=== PATIENT | male | born 1970 | race Caucasian/White ===

== ENCOUNTER 2016-07-10 16:58 | Emergency (ER) | payer OTHER ==
[2016-07-10 17:04] VITALS: BP 129/78; PULSE 81; TEMP 97.9; BMI 21.2
--- NOTE | 2016-07-10 17:44 | PDOC ---
History of Present Illness - General Chief Complaint: Back Pain Stated Complaint: BACK ACHE Time Seen by Provider: 07/10/16 17:33 History Source: Patient Exam Limitations: No Limitations - History of Present Illness Initial Comments: CHIEF COMPLAINT: 45 y/o afebrile male with PMH recent right shoulder arthroscopy c/o low back pain since this morning. HISTORY OF PRESENT ILLNESS: The patient states he was bending down to take picture of his dog and when he went to stand up he felt a pulling in his lower back on both sides. He states during his recent shoulder physical therapy he's felt some "twinges" in his back so he's not surprised this happened. He has been icing it all day but is still very uncomfortable. He is taking Ibuprofen for pain with little relief. He denies fall, abd pain, midline back tenderness , saddle anesthesia, numbness/tingling of LEs, traveling of pain down LEs. Vital signs on arrival are within normal limits. REVIEW OF SYSTEMS: GENERAL/CONSTITUTIONAL: No fever/chills. No weakness. No weight change. GASTROINTESTINAL: No abd pain, nausea, vomiting, diarrhea. GENITOURINARY: No dysuria, frequency, or change in urination. BACK: +low back pain. MUSCULOSKELETAL: No joint or muscle swelling or pain. No neck or back pain. SKIN: No rash or easy bruising. NEUROLOGIC: No headache, vertigo, loss of consciousness, or loss of sensation. PHYSICAL EXAM: GENERAL: The patient is awake, alert, and fully oriented, in no acute distress. The patient is walking slowly and is in obvious discomfort. HEAD: Normal with no signs of trauma. ABDOMEN: Soft, non-distended, non-tender even to deep palpation, no hepatomegaly or splenomegaly, no masses. BACK: No midline lumbar spine TTP or step offs. TTP of b/l lower lumbar paravertebral muscles. Pain elicited with extension of lumbar spine. EXTREMITIES: Normal range of motion, no edema. NEUROLOGICAL: Normal speech, normal gait. CN II-XII grossly intact. No saddle anesthesia. Equal straight leg raise b/l. SKIN: Warm, dry, normal turgor, no rashes or lesions noted. Past History - Past Medical History Allergies/Adverse Reactions: Allergies Allergy/AdvReac Type Severity Reaction Status Date / Time Penicillins Allergy "I DON'T Verified 07/10/16 17:04 KNOW-TOLD A CHILD" BEE STINGS Allergy ANAPHYLACTIC Uncoded 07/10/16 17:04 SHOCK" Home Medications: Ambulatory Orders Ca Cmb No.1/Vit D3/B-6/FA/B12 [Vitamin D3 1,000 Unit Tablet] 1 each PO DAILY Fluticasone Prop 0.05% Nasal [Flonase -] 1 - 2 spray NS DAILY 01/22/14 Oxycodone HCl/Acetaminophen [Percocet 5-325 mg Tablet -] 1 tab PO Q4H PRN #20 tablet 01/23/14 Diphenhydramine [Benadryl Capsule -] 50 mg PO QID #10 capsule 02/01/14 Hydrocortisone 1% Ointment [Hytone 1% Ointment -] 1 applic TP BID #1 tube Diazepam [Valium] 10 mg PO TID #18 tablet MDD 6 07/10/16 Cardiac Disorders: Yes (BICUSPID AORTIC VALVE) Other medical history: RA/Lyme disease - Surgical History Cholecystectomy: Yes - Psycho/Social/Smoking Cessation Hx Anxiety: No Suicidal Ideation: No Smoking History: Never smoked Have you smoked in the past 12 months: No Number of Cigarettes Smoked Daily: 0 Information on smoking cessation initiated: No Hx Alcohol Use: No Drug/Substance Use Hx: No Substance Use Type: Alcohol Hx Substance Use Treatment: No *Physical Exam - Vital Signs Last Vital Signs Temp Pulse Resp BP Pulse Ox 97.9 F 81 18 129/78 100 07/10/16 17:00 07/10/16 17:00 07/10/16 17:00 07/10/16 17:00 07/10/16 17:00 Medical Decision Making - Medical Decision Making A/P: 45 y/o afebrile male with b/l low back strain. Pt is currently taking Ibuprofen every 8 hours for pain. Will give PO Valium in the ER as he has a ride home. Will send rx for Valium and suggested he continue taking Ibuprofen as well. Instructed him to apply heat to the affected area and stretch. Suggested he f/u with his doctor/orthopedic doctor within 1 week if no improvement in symptoms. The patient verbalizes understanding of all instructions, has no further questions and is awaiting discharge. *DC/Admit/Observation/Transfer Diagnosis at time of Disposition: Muscle spasm of back Low back strain Qualifiers: Encounter type: initial encounter Qualified Code(s): S39.012A - Strain of muscle, fascia and tendon of lower back, initial encounter - Discharge Dispostion Disposition: HOME Condition at time of disposition: Good - Referrals Referrals: Singh Schultz MD [Primary Care Provider] - - Patient Instructions Printed Discharge Instructions: DI for Low Back Pain, DI for Back Spasm Additional Instructions: Discharge Instructions: -Take Valium as prescribed for low back pain/back spasm; Valium may cause drowsiness -Stretch your back multiple times per day -Apply heating pad to the affected area -Follow up with your doctor and physical therapist within 1 week -Return to the ER with any worsening or concerning symptoms
[2016-07-10] MEDS ORDERED: diazePAM 5 MG TABLET PO ONE (18:01)
[2016-07-10] MEDS ORDERED: diazePAM 5 MG TABLET ONE (18:04)
== END 2016-07-10 18:25 | disposition home or self-care (01) ==
LOC: SUPCPDRO 16:58 → JERFT 16:58
DX: S39.012A Strain of muscle, fascia and tendon of lower back, initial encounter (principal); M62.830 Muscle spasm of back; X50.9XXA Other and unspecified overexertion or strenuous movements or postures, initial encounter; X50.1XXA Overexertion from prolonged static or awkward postures, initial encounter; Y93.89 Activity, other specified; Y92.038 Other place in apartment as the place of occurrence of the external cause; Y99.8 Other external cause status; M06.9 Rheumatoid arthritis, unspecified
CPT/HCPCS: 99281-25